=== PATIENT | female | born 1930 | race Hispanic/Latino ===

== ENCOUNTER 2017-05-15 16:30 | Observation (INO) | payer MEDICARE, BC ==
[2017-05-15 16:30] VITALS: BMI 27.4
[2017-05-15] MEDS ORDERED: Sodium Chloride 0.9% 500 ML IV STA (17:10)
--- NOTE | 2017-05-15 17:20 | ED PDOC ---
Syncope/Near Syncope/Dizziness Time Seen by Provider: 05/15/17 16:39 Chief Complaint (Nursing): Dizziness/Lightheaded Chief Complaint (Provider): Dizziness History Per: Patient History/Exam Limitations: no limitations Onset/Duration Of Symptoms: Days (today 3pm) Current Symptoms Are (Timing): Better Additional Complaint(s): Delay in pt. care as pt. and family refused to see procedure writer and demanded Dr. Pinedo. Then demanded Dr. De La O be spoken to prior to any evaluation. 1715: Spoke with Dr. De La O who spoke with family and agree to be seen. Pt. was with family and then bent over to get something and felt light-headed. Pt. then came to the ED. Pt. states she feels better currently. No chest pain , dyspnea, weakness, numbness, tingles, headaches, abd pain, dyspnea, fever, cough, headache, speech changes. Pt. PCP Dr. De La O spoken to and wants workup. Past Medical History Reviewed: Nursing Documentation, Vital Signs Vital Signs: Last Vital Signs Temp 99.2 F 05/15/17 16:42 Pulse 72 05/15/17 16:42 Resp 18 05/15/17 16:42 BP 156/96 H 05/15/17 16:42 Pulse Ox 95 05/15/17 16:42 - Medical History PMH: HTN, Hypercholesterolemia Denies: Chronic Kidney Disease - Surgical History Surgical History: No Surg Hx - Family History Family History: States: Unknown Family Hx - Living Arrangements Living Arrangements: With Family - Social History Current smoker - smoking cessation education provided: No Alcohol: None Drugs: Denies - Home Medications Home Medications: Ambulatory Orders Medication Instructions Recorded Atorvastatin [Lipitor] 10 mg PO DAILY 08/21/16 Spironolact/Hydrochlorothiazid 1 tab PO DAILY 08/21/16 [Aldactazide 25 mg-25 mg] Docusate [Colace] 100 mg PO DAILY 05/15/17 - Allergies Allergies/Adverse Reactions: Allergies Allergy/AdvReac Type Severity Reaction Status Date / Time No Known Allergies Allergy Unverified 03/22/14 10:45 Review of Systems ROS Statement: Except As Marked, All Systems Reviewed And Found Negative Neurological: Positive for: Dizziness Physical Exam - Reviewed Nursing Documentation Reviewed: Yes Vital Signs Reviewed: Yes - Physical Exam Appears: Positive for: Non-toxic, No Acute Distress Head Exam: Positive for: ATRAUMATIC, NORMAL INSPECTION, NORMOCEPHALIC Skin: Positive for: Normal Color, Warm, DRY Eye Exam: Positive for: EOMI, Normal appearance, PERRL ENT: Positive for: Normal ENT Inspection Neck: Positive for: Normal, Painless ROM Cardiovascular/Chest: Positive for: Regular Rate, Rhythm Respiratory: Positive for: CNT, Normal Breath Sounds Gastrointestinal/Abdominal: Positive for: Normal Exam, Bowel Sounds, Soft. Negative for: Tenderness Back: Positive for: Normal Inspection. Negative for: L CVA Tenderness, R CVA Tenderness Extremity: Positive for: Normal ROM. Negative for: Tenderness, Pedal Edema Neurologic/Psych: Positive for: Alert, assembly worker II-XII, Oriented. Negative for: Motor/Sensory Deficits, Mood/Affect, Aphasia, Facial Droop - Laboratory Results Result Diagrams: 05/15/17 17:27 05/15/17 17:27 Interpretation Of Abn Labs: 3.4k - ECG ECG: Positive for: Interpreted By Me, Viewed By Me ECG Rhythm: Positive for: Normal QRS, Normal ST Segment, Sinus Rhythm O2 Sat by Pulse Oximetry: 95 Pulse Ox Interpretation: Normal - Radiology X-Ray: Interpreted by Me, Viewed By Me X-Ray Interpretation: No Acute Disease - CT Scan/US ct Other Rad Studies (CT/US): Read By Radiologist Other Rad Interpretation: no acute - Progress ED Course And Treament: 184: Stable. Spoke with Dr. De La O. Wants Dr. Salazar to be called and discuss case. Spoke with Dr. Salazar. Wants pt. to be admitted to hospitalist for further eval. AAOx3. Nausea, will give zofran. Disposition - Clinical Impression Clinical Impression: Dizziness, Hypokalemia - Patient ED Disposition Is Patient to be Admitted: Yes Counseled Patient/Family Regarding: Studies Performed, Diagnosis - Disposition Disposition Time: 18:50 Condition: FAIR - Pt Status Changed To: Hospital Disposition Of: Observation - POA Present On Arrival: None
[2017-05-15 17:34] LABS: BASO # 0.1 K/uL (0.0-0.2); BASO % 0.7 % (0.0-2.0); EOS # 0.1 K/uL (0.0-0.7); EOS % 0.9 % (0.0-4.0); HEMATOCRIT 38.3 % (34.0-47.0); LYMPH # 1.3 K/uL (1.0-4.3); LYMPH % 11.8 % (20.0-40.0); MEAN CELL VOLUME 94.6 fl (81.0-99.0); MEAN CORPUSCULAR HEMOGLOBIN 31.2 pg (27.0-31.0); MEAN PLATELET VOLUME 7.3 fl (7.2-11.7); MONO # 0.5 K/uL (0.0-0.8); MONO % 4.7 % (0.0-10.0); NEUT # 8.8 K/uL (1.8-7.0); NEUT % 81.9 % (50.0-75.0); NRBC % 0.1 % (0.0-0.0); RED CELL DISTRIBUTION WIDTH 13.5 % (11.5-14.5); WHITE BLOOD COUNT 10.8 K/uL (4.8-10.8)
[2017-05-15 17:46] LABS: ALB/GLOB RATIO 1.4 (1.0-2.1); ALKALINE PHOSPHATASE 81 U/L (38-126); ALT/SGPT 23 U/L (9-52); AST/SGOT 24 U/L (14-36); BILIRUBIN,TOTAL 0.2 mg/dl (0.2-1.3); BLOOD UREA NITROGEN 16 mg/dl (7-17); CARBON DIOXIDE 28 mmol/L (22-30); CHLORIDE 102 mmol/L (98-107); GFR AFRICAN-AMERICAN > 60; GLUCOSE,RANDOM 117 mg/dL (65-105); SODIUM 141 mmol/l (132-148); TOTAL PROTEIN 7.5 G/DL (6.3-8.2)
[2017-05-15 17:54] LABS: POTASSIUM 3.4 MMOL/L (3.6-5.0)
[2017-05-15] MEDS ORDERED: Potassium Chloride 20 mEq ER Tab PO STA (18:19)
--- NOTE | 2017-05-15 18:27 | CT ---
PROCEDURE: CT HEAD WITHOUT CONTRAST. HISTORY: Headache COMPARISON: MRI brain without contrast from 01/09/2016 TECHNIQUE: Axial computed tomography images were obtained through the head/brain without intravenous contrast. Radiation dose: Total exam DLP = 844.88 mGy-cm. This CT exam was performed using one or more of the following dose reduction techniques: Automated exposure control, adjustment of the mA and/or kV according to patient size, and/or use of iterative reconstruction technique. FINDINGS: HEMORRHAGE: No intracranial hemorrhage. BRAIN: There are moderate chronic microangiopathic changes. There is no mass, mass effect or abnormal extra-axial fluid collection there are symmetric senile calcifications in bilateral basal ganglia. VENTRICLES: There is moderate age-related global parenchymal volume loss and proportionate enlargement of the ventricles and cortical sulci. CALVARIUM: The skull base and calvarium are normal. PARANASAL SINUSES: Predominantly clear. MASTOID AIR CELLS: Bilateral mastoid air cells are underdeveloped. OTHER FINDINGS: None. IMPRESSION: No acute intracranial abnormality. Moderate chronic microangiopathic changes and moderate age-related global parenchymal volume loss.
--- NOTE | 2017-05-15 18:29 | RAD ---
HISTORY: dizzy COMPARISON: 08/14/2016 FINDINGS: LUNGS: The lungs are hyperinflated and there is peribronchial thickening with chronic changes in both lungs. No focal consolidation. PLEURA: No significant pleural effusion identified, no pneumothorax apparent. CARDIOVASCULAR: Normal. OSSEOUS STRUCTURES: No significant abnormalities. VISUALIZED UPPER ABDOMEN: Normal. OTHER FINDINGS: None. IMPRESSION: No active pulmonary disease. COPD.
[2017-05-15] MEDS ORDERED: Potassium Chloride 20 mEq ER Tab PO ONE (18:34)
--- NOTE | 2017-05-15 19:27 | CP.PCM.HP ---
History of Present Illness - History of Present Illness History of Present Illness: Chief complaint nausea and dizziness History of present illness: 86-year-old female past medical history of hypertension and hyperlipidemia presents with a one-day history of acute onset nausea and dizziness approximately 8 hours prior to arrival to the emergency room. Patient states that the dizziness has resolved, but the moderate nausea has been worsening gradually and has been constant, but is not associated with any emesis. At the time of onset patient had bent down while folding laundry, however after resting symptoms have not subsided so she decided to come to the emergency room. In the emergency room, patient had head CT was negative, she was given fluids and was found to be hemodynamically stable. Urinalysis and urine cultures are pending. Blood work was all within normal limits. Discussed with emergency room physician, and upon discussion with primary care physician Dr. Henderson patient to be admitted for observation overnight. Cardiology consult to Dr. Rios, patient's contracts analyst. Review of systems per HPI all other systems reviewed and negative by me Past medical history includes hypertension and hyperlipidemia Past surgical history denies Family history pancreatic CA mother Social history denies tobacco, alcohol, illicit drug use No known drug allergies Vitals reviewed Physical exam: Constitutional- cooperative, awake, alert. Head- NCAT, PERRL Eye- PERRL, normal accommodation ENT- normal exam, MMM. Neck- normal inspection, supple, no JVD Respiratory- CTAB, no wheezes rales rhonchi Cardiovascular- RRR, +S1, +S2 no MRG GI/Abdominal- normal bowel sounds, soft, no mass, no hsm Skin- warm, dry Extremities Exam- normal capillary refill, normal inspection Neurological Exam- alert, stable gait Psych- normal mood, normal affect Laboratory results 05/15/17 17:27 05/15/17 17:[address] no acute pathology EKG was normal sinus rhythm, no acute evidence of ischemia or infarct Assessment and plan 86-year-old female past medical history of hypertension and hyperlipidemia presents with a one-day history of acute onset nausea and dizziness approximately 8 hours prior to arrival to the emergency room. Patient states that the dizziness has resolved, but the moderate nausea has been worsening gradually and has been constant, but is not associated with any emesis. At the time of onset patient had bent down while folding laundry, however after resting symptoms have not subsided so she decided to come to the emergency room. In the emergency room, patient had head CT was negative, she was given fluids and was found to be hemodynamically stable. Urinalysis and urine cultures are pending. Blood work was all within normal limits. Discussed with emergency room physician, and upon discussion with primary care physician Dr. Henderson patient to be admitted for observation overnight. Cardiology consult to Dr. Rios, patient's contracts analyst. Nausea and Dizziness Head CT normal ObsTele Overnight EKG normal troponin neg trend cardiac enzymes Urinalysis and UCx pending afebrile, no WBC NS given in ER Zofran for nausea Hypertension and Hyperlipidemia continue pt statin and spironolactone/hctz VTE ppx lovenox Present on Admission - Present on Admission Any Indicators Present on Admission: No Past Patient History - Past Medical History & Family History Past Medical History?: Yes - Past Social History Alcohol: None Drugs: Denies - CARDIAC Hx Hypercholesterolemia: Yes Hx Hypertension: Yes - PULMONARY Hx Respiratory Disorders: No - NEUROLOGICAL Hx Neurological Disorder: No - HEENT Hx HEENT Problems: No - RENAL Hx Chronic Kidney Disease: No - ENDOCRINE/METABOLIC Hx Endocrine Disorders: No - HEMATOLOGICAL/ONCOLOGICAL Hx Blood Disorders: No - INTEGUMENTARY Hx Dermatological Problems: No Other/Comment: chicken pox - MUSCULOSKELETAL/RHEUMATOLOGICAL Hx Musculoskeletal Disorders: No - GASTROINTESTINAL Hx Gastrointestinal Disorders: No - GENITOURINARY/GYNECOLOGICAL Hx Genitourinary Disorders: No - PSYCHIATRIC Hx Psychophysiologic Disorder: No Hx Emotional Abuse: No Hx Physical Abuse: No Hx Substance Use: No - SURGICAL HISTORY Hx Surgeries: No Hx Cataract Extraction: Yes (right) Hx Musculoskeletal Surgery: Yes (R foot sx 10 yrs ago) - ANESTHESIA Hx Anesthesia: Yes Hx Anesthesia Reactions: Yes (too nauseous) Hx Malignant Hyperthermia: No Meds Allergies/Adverse Reactions: Allergies Allergy/AdvReac Type Severity Reaction Status Date / Time No Known Allergies Allergy Unverified 03/22/14 10:45 Results - Vital Signs Recent Vital Signs: Last Vital Signs Temp 99.2 F 05/15/17 16:42 Pulse 62 05/15/17 18:18 Resp 18 05/15/17 18:18 BP 132/82 05/15/17 18:18 Pulse Ox 95 05/15/17 18:50 - Labs Result Diagrams: 05/15/17 17:27 05/15/17 17:27 Labs: Laboratory Results - last 24 hr 05/15/17 05/15/17 05/15/17 17:27 17:27 17:27 WBC 10.8 RBC 4.05 Hgb 12.6 Hct 38.3 MCV 94.6 MCH 31.2 H MCHC 33.0 RDW 13.5 Plt Count 266 MPV 7.3 Neut % (Auto) 81.9 H Lymph % (Auto) 11.8 L [place] % (Auto) 4.7 Eos % (Auto) 0.9 Baso % (Auto) 0.7 Neut # 8.8 H Lymph # 1.3 [place] # 0.5 Eos # 0.1 Baso # 0.1 PT 11.4 INR 1.0 APTT 29.0 Sodium 141 Potassium 3.4 L Chloride 102 Carbon Dioxide 28 Anion Gap 14 BUN 16 Creatinine 0.7 Est GFR ( Amer) > 60 Est GFR (Non-Af Amer) > 60 Random Glucose 117 H Calcium 9.0 Total Bilirubin 0.2 AST 24 ALT 23 Alkaline Phosphatase 81 Troponin I < 0.0120 Total Protein 7.5 Albumin 4.4 Globulin 3.1 Albumin/Globulin Ratio 1.4
[2017-05-15 21:29] LABS: RBC URINE 2 /hpf (0-3); URINE BACTERIA RARE (<OCC); URINE BILIRUBIN NEGATIVE (NEGATIVE); URINE BLOOD NEGATIVE (NEGATIVE); URINE COLOR YELLOW (YELLOW); URINE GLUCOSE (UA) NEG (Normal); URINE KETONE TRACE mg/dL (NEGATIVE); URINE LEUKOCYTE ESTERASE NEG Leu/uL (Negative); URINE PROTEIN NEGATIVE (NEGATIVE); URINE UROBILINOGEN 0.2-1.0 mg/dL (0.2-1.0); WBC URINE 2 /hpf (0-5)
[2017-05-16 04:55] VITALS: O2SAT 94
[2017-05-16 06:20] LABS: HEMATOCRIT 35.5 % (34.0-47.0); MEAN CELL VOLUME 94.4 fl (81.0-99.0); MEAN CORPUSCULAR HEMOGLOBIN 31.8 pg (27.0-31.0); MEAN CORPUSCULAR HGB CONC 33.6 g/dL (33.0-37.0); RED CELL DISTRIBUTION WIDTH 13.6 % (11.5-14.5); WHITE BLOOD COUNT 7.7 K/uL (4.8-10.8)
[2017-05-16 06:41] LABS: BLOOD UREA NITROGEN 10 mg/dl (7-17); CALCIUM 8.8 mg/dL (8.4-10.2); CARBON DIOXIDE 28 mmol/L (22-30); CHLORIDE 104 mmol/L (98-107); GFR AFRICAN-AMERICAN > 60; GLUCOSE,RANDOM 92 mg/dL (65-105); POTASSIUM 3.5 MMOL/L (3.6-5.0); SODIUM 144 mmol/l (132-148)
[2017-05-16 07:59] VITALS: BP 119/76; RESP 18; TEMP 98.4
[2017-05-16] MEDS ORDERED: Enoxaparin 40 mg Syringe SC SCH (09:00)
[2017-05-16] MEDS ORDERED: HYDROCHLOROTHIAZID PO SCH (09:00)
[2017-05-16] MEDS ORDERED: SPIRONOLACT PO SCH (09:00)
[2017-05-16] MEDS ORDERED: Potassium Chloride 20 mEq/15 ml LIQ UD PO ONE (09:23)
--- NOTE | 2017-05-16 09:27 | CP.PCM.DIS ---
Provider - Provider Date of Admission: 05/15/17 18:49 Attending physician: Janki Lugo DO Primary care physician: Dr. Henderson Consults: Cardiology consult Time Spent in preparation of Discharge (in minutes): 15 Hospital Course - Lab Results Lab Results: Most Recent Lab Values WBC 7.7 K/uL (4.8-10.8) 05/16/17 05:25 RBC 3.76 Mil/uL (3.80-5.20) L 05/16/17 05:25 Hgb 11.9 g/dL (12.0-16.0) L 05/16/17 05:25 Hct 35.5 % (34.0-47.0) 05/16/17 05:25 MCV 94.4 fl (81.0-99.0) 05/16/17 05:25 MCH 31.8 pg (27.0-31.0) H 05/16/17 05:25 MCHC 33.6 g/dL (33.0-37.0) 05/16/17 05:25 RDW 13.6 % (11.5-14.5) 05/16/17 05:25 Plt Count 266 K/uL (130-400) 05/16/17 05:25 MPV 7.3 fl (7.2-11.7) 05/15/17 17:27 Neut % (Auto) 81.9 % (50.0-75.0) H 05/15/17 17:27 Lymph % (Auto) 11.8 % (20.0-40.0) L 05/15/17 17:27 [place] % (Auto) 4.7 % (0.0-10.0) 05/15/17 17:27 Eos % (Auto) 0.9 % (0.0-4.0) 05/15/17 17:27 Baso % (Auto) 0.7 % (0.0-2.0) 05/15/17 17:27 Neut # 8.8 K/uL (1.8-7.0) H 05/15/17 17:27 Lymph # 1.3 K/uL (1.0-4.3) 05/15/17 17:27 [place] # 0.5 K/uL (0.0-0.8) 05/15/17 17:27 Eos # 0.1 K/uL (0.0-0.7) 05/15/17 17:27 Baso # 0.1 K/uL (0.0-0.2) 05/15/17 17:27 PT 11.4 Seconds (9.8-13.1) 05/15/17 17:27 INR 1.0 (0.9-1.2) 05/15/17 17:27 APTT 29.0 Seconds (25.6-37.1) 05/15/17 17:27 Sodium 144 mmol/l (132-148) 05/16/17 05:25 Potassium 3.5 MMOL/L (3.6-5.0) L 05/16/17 05:25 Chloride 104 mmol/L (98-107) 05/16/17 05:25 Carbon Dioxide 28 mmol/L (22-30) 05/16/17 05:25 Anion Gap 16 (10-20) 05/16/17 05:25 BUN 10 mg/dl (7-17) 05/16/17 05:25 Creatinine 0.7 mg/dL (0.7-1.2) 05/16/17 05:25 Est GFR ( Amer) > 60 05/16/17 05:25 Est GFR (Non-Af Amer) > 60 05/16/17 05:25 POC Glucose (mg/dL) 169 mg/dL (65-110) H 05/15/17 17:06 Random Glucose 92 mg/dL (65-105) 05/16/17 05:25 Calcium 8.8 mg/dL (8.4-10.2) 05/16/17 05:25 Total Bilirubin 0.2 mg/dl (0.2-1.3) 05/15/17 17:27 AST 24 U/L (14-36) 05/15/17 17:27 ALT 23 U/L (9-52) 05/15/17 17:27 Alkaline Phosphatase 81 U/L (38-126) 05/15/17 17:27 Troponin I < 0.0120 ng/mL (0.00-0.120) 05/16/17 05:25 Total Protein 7.5 G/DL (6.3-8.2) 05/15/17 17:27 Albumin 4.4 g/dL (3.5-5.0) 05/15/17 17: Globulin 3.1 gm/dL (2.2-3.9) 05/15/17 17: Albumin/Globulin Ratio 1.4 (1.0-2.1) 05/15/17 17:27 Urine Color Yellow (YELLOW) 05/15/17 20:35 Urine Clarity Slighty-cloudy (Clear) 05/15/17 20:35 Urine pH 6.0 (5.0-8.0) 05/15/17 20:35 Ur Specific [place] 1.016 (1.003-1.030) 05/15/17 20:35 Urine Protein Negative mg/dL (NEGATIVE) 05/15/17 20:35 Urine Glucose (UA) Neg mg/dL (Normal) 05/15/17 20:35 Urine Ketones Trace mg/dL (NEGATIVE) 05/15/17 20:35 Urine Blood Negative (NEGATIVE) 05/15/17 20:35 Urine Nitrate Negative (NEGATIVE) 05/15/17 20:35 Urine Bilirubin Negative (NEGATIVE) 05/15/17 20:35 Urine Urobilinogen 0.2-1.0 mg/dL (0.2-1.0) 05/15/17 20:35 Ur Leukocyte Esterase Neg [place]/uL (Negative) 05/15/17 20:35 Urine RBC (Auto) 2 /hpf (0-3) 05/15/17 20:35 Urine Microscopic WBC 2 /hpf (0-5) 05/15/17 20:35 Ur Squamous Epith Cells 5 /hpf (0-5) 05/15/17 20:35 Urine Bacteria Rare (<OCC) 05/15/17 20:35 - Hospital Course Hospital Course: 86-year-old female with past medical history of hypertension and hyperlipidemia presented with a one-day history of acute onset nausea and dizziness approximately 8 hours prior to arrival to the emergency room. Patient states that the dizziness has resolved, but the moderate nausea has been worsening gradually and has been constant, but is not associated with any emesis. At the time of onset patient had bent down while folding laundry, however after resting symptoms have not subsided so she decided to come to the emergency room. In the emergency room, patient had head CT was negative, she was given fluids and was found to be hemodynamically stable. Blood work was all within normal limits. Discussed with emergency room physician, and upon discussion with primary care physician Dr. Henderson patient placed under observation overnight. Cardiology consult to Dr. Rios, patient's c d reactor operator appreciated . supervisor sheet manufacturing showed NST+R with no arrythmias Hemodynamically stable Patient cleared for discharge jian Follow up with PMD and ENT Continue home meds 1. Nausea and Dizziness of unclear etiology monitored in telemetry] no arrythmias cardiology consult appreciated D/vc home follow upw ith ENT 2.Hypertension -on spironolactone, controlled 3. Hyperlipidemia- on statin Discharge Exam - Head Exam Head Exam: ATRAUMATIC, NORMAL INSPECTION, NORMOCEPHALIC - Eye Exam Eye Exam: EOMI, Normal appearance, PERRL Pupil Exam: NORMAL ACCOMODATION - ENT Exam ENT Exam: Mucous Membranes Moist, Normal Exam - Neck Exam Neck exam: Full Rom, Normal Inspection - Respiratory Exam Respiratory Exam: Clear to PA & Lateral, NORMAL BREATHING PATTERN. absent: Rales, Rhonchi, Wheezes - Cardiovascular Exam Cardiovascular Exam: REGULAR RHYTHM, RRR, +S1, +S2. absent: JVD - GI/Abdominal Exam GI & Abdominal Exam: Normal Bowel Sounds, Soft. absent: Distended, Guarding, Rebound, Tenderness - Rectal Exam Rectal Exam: Deferred - Extremities Exam Extremities exam: normal capillary refill, normal inspection, pedal pulses present - Back Exam Back exam: NORMAL INSPECTION - Neurological Exam Neurological exam: Alert, CN II-XII Intact, Oriented x3, Reflexes Normal - Psychiatric Exam Psychiatric exam: Normal Affect, Normal Mood - Skin Skin Exam: Dry, Intact, Normal Color, Warm Discharge Plan - Follow Up Plan Condition: STABLE Disposition: HOME/ ROUTINE Patient education suggested?: Yes Referrals: Brad Henderson MD [Family Provider] - Barrera Salazar MD [Staff Provider] -
--- NOTE | 2017-05-16 10:27 | CP.PCM.CON ---
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 This occurred in the afternoon and by evening this had subsided. She denies any palpitations or double vision or any speech or motor deficit. She has no history of diabetes and has no history of cigarette use. She has been under the care of her neurologist for dementia.this sense of lightheadedness was accompanied by nausea but no vomiting. She denies any allergies. She denies any sore throat or ringing in the ear. She denies any earache. Physical examination showsan elderly lady who is slightly confused about the precise events surrounding her admission. She is able to answer questions with the help of her daughter who is in attendance. Her heart rate was 68 bpm regular and her blood pressure was 124/74 mmHg. Her jugular venous pressure was not elevated. There was no edema or lower extremity no orthostatic changes to her blood pressure went noted upon standing up. There were no carotid bruits. The pedal pulses were well felt. [place] was in the fifth space and the first and second heart sounds were normal there was no murmur or gallop there were no rales. Her abdomen was soft liver and spleen are not palpable. Her electrocardiogram showed sinus rhythm with borderline voltage criteria for LVH otherwise normal pattern. Telemetry shows steady sinus rhythm at physiological rates interrupted by rare premature atrial and ventricular beats. The lab data was noted. Impression: her history is suggestive of vestibular dysfunction. No cardiovascular abnormality was detected. The patient may be allowed to return home and was advised to see an ENT physician as an outpatient. Past Patient History - Past Medical History & Family History Past Medical History?: Yes - Past Social History Smoking Status: Never Smoked - CARDIAC Hx Cardiac Disorders: Yes Hx Hypercholesterolemia: Yes Hx Hypertension: Yes - PULMONARY Hx Respiratory Disorders: No - NEUROLOGICAL Hx Neurological Disorder: No - HEENT Hx HEENT Problems: No - RENAL Hx Chronic Kidney Disease: No - ENDOCRINE/METABOLIC Hx Endocrine Disorders: No - HEMATOLOGICAL/ONCOLOGICAL Hx Blood Disorders: No - INTEGUMENTARY Hx Dermatological Problems: No - MUSCULOSKELETAL/RHEUMATOLOGICAL Hx Musculoskeletal Disorders: No Hx Falls: No - GASTROINTESTINAL Hx Gastrointestinal Disorders: No - GENITOURINARY/GYNECOLOGICAL Hx Genitourinary Disorders: No - PSYCHIATRIC Hx Psychophysiologic Disorder: No Hx Substance Use: No - SURGICAL HISTORY Hx Surgeries: Yes Hx Cataract Extraction: Yes (right) Hx Musculoskeletal Surgery: Yes (R foot sx 10 yrs ago) - ANESTHESIA Hx Anesthesia: Yes Hx Anesthesia Reactions: Yes (nausea) Hx Malignant Hyperthermia: No Meds Allergies/Adverse Reactions: Allergies Allergy/AdvReac Type Severity Reaction Status Date / Time No Known Allergies Allergy Unverified 03/22/14 10:45 - Medications Medications: Current Medications Atorvastatin Calcium (Lipitor) 10 mg PO DAILY [facility] Last Admin: 05/16/17 09:08 Dose: 10 mg Docusate Sodium (Colace) 100 mg PO DAILY [facility] Last Admin: 05/16/17 09:07 Dose: 100 mg Hydrochlorothiazide (Hydrodiuril) 25 mg PO DAILY [facility] Last Admin: 05/16/17 09:07 Dose: 25 mg Ondansetron HCl (Zofran Inj) 4 mg IVP Q6 PRN PRN Reason: Nausea/Vomiting Spironolactone (Aldactone) 25 mg PO DAILY [facility] Results - Vital Signs Recent Vital Signs: Last Vital Signs Temp 98.4 F 05/16/17 07:58 Pulse 74 05/16/17 07:58 Resp 18 05/16/17 07:58 BP 119/76 05/16/17 07:58 Pulse Ox 94 L 05/16/17 07:58 - Labs Result Diagrams: 05/16/17 05:25 05/16/17 05:25 Labs: Laboratory Results - last 24 hr 05/15/17 05/15/17 05/15/17 17:06 17:27 17:27 WBC 10.8 RBC 4.05 Hgb 12.6 Hct 38.3 MCV 94.6 MCH 31.2 H MCHC 33.0 RDW 13.5 Plt Count 266 MPV 7.3 Neut % (Auto) 81.9 H Lymph % (Auto) 11.8 L [place] % (Auto) 4.7 Eos % (Auto) 0.9 Baso % (Auto) 0.7 Neut # 8.8 H Lymph # 1.3 [place] # 0.5 Eos # 0.1 Baso # 0.1 PT INR APTT Sodium 141 Potassium 3.4 L Chloride 102 Carbon Dioxide 28 Anion Gap 14 BUN 16 Creatinine 0.7 Est GFR ( Amer) > 60 Est GFR (Non-Af Amer) > 60 POC Glucose (mg/dL) 169 H Random Glucose 117 H Calcium 9.0 Total Bilirubin 0.2 AST 24 ALT 23 Alkaline Phosphatase 81 Troponin I < 0.0120 Total Protein 7.5 Albumin 4.4 Globulin 3.1 Albumin/Globulin Ratio 1.4 Urine Color Urine Clarity Urine pH Ur Specific [place] Urine Protein Urine Glucose (UA) Urine Ketones Urine Blood Urine Nitrate Urine Bilirubin Urine Urobilinogen Ur Leukocyte Esterase Urine RBC (Auto) Urine Microscopic WBC Ur Squamous Epith Cells Urine Bacteria 05/15/17 05/15/17 05/15/17 17:27 20:35 23:30 WBC RBC Hgb Hct MCV MCH MCHC RDW Plt Count MPV Neut % (Auto) Lymph % (Auto) [place] % (Auto) Eos % (Auto) Baso % (Auto) Neut # Lymph # [place] # Eos # Baso # PT 11.4 INR 1.0 APTT 29.0 Sodium Potassium Chloride Carbon Dioxide Anion Gap BUN Creatinine Est GFR ( Amer) Est GFR (Non-Af Amer) POC Glucose (mg/dL) Random Glucose Calcium Total Bilirubin AST ALT Alkaline Phosphatase Troponin I < 0.0120 Total Protein Albumin Globulin Albumin/Globulin Ratio Urine Color Yellow Urine Clarity Slighty-cloudy Urine pH 6.0 Ur Specific [place] 1.016 Urine Protein Negative Urine Glucose (UA) Neg Urine Ketones Trace Urine Blood Negative Urine Nitrate Negative Urine Bilirubin Negative Urine Urobilinogen 0.2-1.0 Ur Leukocyte Esterase Neg Urine RBC (Auto) 2 Urine Microscopic WBC 2 Ur Squamous Epith Cells 5 Urine Bacteria Rare 05/16/17 05/16/17 05:25 05:25 WBC 7.7 RBC 3.76 L Hgb 11.9 L Hct 35.5 MCV 94.4 MCH 31.8 H MCHC 33.6 RDW 13.6 Plt Count 266 MPV Neut % (Auto) Lymph % (Auto) [place] % (Auto) Eos % (Auto) Baso % (Auto) Neut # Lymph # [place] # Eos # Baso # PT INR APTT Sodium 144 Potassium 3.5 L Chloride 104 Carbon Dioxide 28 Anion Gap 16 BUN 10 Creatinine 0.7 Est GFR ( Amer) > 60 Est GFR (Non-Af Amer) > 60 POC Glucose (mg/dL) Random Glucose 92 Calcium 8.8 Total Bilirubin AST ALT Alkaline Phosphatase Troponin I < 0.0120 Total Protein Albumin Globulin Albumin/Globulin Ratio Urine Color Urine Clarity Urine pH Ur Specific [place] Urine Protein Urine Glucose (UA) Urine Ketones Urine Blood Urine Nitrate Urine Bilirubin Urine Urobilinogen Ur Leukocyte Esterase Urine RBC (Auto) Urine Microscopic WBC Ur Squamous Epith Cells Urine Bacteria
--- NOTE | 2017-05-16 10:42 | CARD ---
APPROVED REPORT EKG Measurement Heart Clup02BLND CT 200P-1 [id number] <Conclusion> Normal sinus rhythm Moderate voltage criteria for LVH, may be normal variant Borderline ECG
[2017-05-16 11:43] VITALS: PULSE 84
== END 2017-05-16 11:00 | disposition home or self-care (01) ==
LOC: H.ER 16:30 → H.ERHOLD 18:49 → H.TEL 21:22
PROVIDERS: ADMIT Student in an Organized Health Care Education/Training Program; ATTEND Student in an Organized Health Care Education/Training Program
DX: E87.6 Hypokalemia (principal); R42 Dizziness and giddiness; E78.5 Hyperlipidemia, unspecified; I10 Essential (primary) hypertension; F03.90 Unspecified dementia, unspecified severity, without behavioral disturbance, psychotic disturbance, mood disturbance, and anxiety; R11.0 Nausea
CPT/HCPCS: 36415; 70450; 71010; 80048; 80053; 81003; 82948; 84484; 85025; 85027; 85610; 85730; 87086; 93005; 99285; G0378; J2405; J7040